=== PATIENT | male | born 1945 | race Caucasian/White ===

== ENCOUNTER → 2021-10-13 | Outpatient (CLI) | payer MEDICARE | END | disposition home or self-care (01) | LOC: LAB 14:45 | PROVIDERS: ATTEND Surgery | DX: Z01.812 Encounter for preprocedural laboratory examination (principal); Z20.822 Contact with and (suspected) exposure to COVID-19 | CPT/HCPCS: U0003; C9803 ==

== ENCOUNTER 2021-10-17 06:57 | Day surgery (SDC) | payer MEDICARE, BC ==
[2021-10-17] MEDS ORDERED: LIDOCAINE 1% INJ 50 ML MDV IJ ONE ×2 (07:58)
[2021-10-17] MEDS ORDERED: BUPIVACAINE MPF W/EPI 0.25% 30 ML VIAL ONE (07:59)
--- NOTE | 2021-10-17 09:00 | NUR ---
RN ADMITTING NOTES PATIENT ARRIVED TO UNIT, AMBULATORY, STEADY GAIT @0715. A/Ox4, ABLE TO MAKE NEEDS KNOWN. ORIENTED TO UNIT, ROOM, AND STAFF. PATIENT ASKED TO CHANGE INTO GOWN, PERSONAL BELONGINGS AND CLOTHES STORED IN BEDSIDE DRESSER. VITAL SIGNS TAKEN AND STABLE, ON ROOM AIR NO S/S OF RESPIRATORY DISTRESS. NO C/O OF CHEST PAIN OR CARDIAC DISTRESS. NO COMPLAINT OF PAIN OR DISCOMFORT. BS: 100, NO S/S OF HYPO/HYPERGLYCEMIA. FULL BODY ASSESSMENT COMPLETED: CARDIAC HEART SOUNDS WITHIN NORMAL LIMITS, RESPIRATORY LUNG SOUNDS WITHIN NORMAL LIMITS, GI/ STOMACH SOFT AND NON-TENDER, NO DISTENTION NOTED, SKIN IS INTACT, NO SKIN TEARS OR DISCOLORATION NOTED. IV SITE STARTED ON L AC #18 AND R AC #20, BOTH INTACT AND PATENT, DRESSINGS SECURED. RN EXPLAINED CONSENT FORMS TO PATIENT, PATIENT VERBALIZED UNDERSTANDING AND SIGNED CONSENT FORMS. PATIENT WAS PICKED UP AND BY OR STAFF x3 AND LEFT UNIT @0830.
[2021-10-17] MEDS ORDERED: HYDROMORPHONE INJ 2 MG/ML DISP.SYRIN ONE (09:05)
[2021-10-17] MEDS ORDERED: ANESTHESIA TRAY IN PYXIS 1 EA TRAY MC ONE (09:09)
[2021-10-17] MEDS ORDERED: KETOROLAC TROMETHAMINE INJ 30 MG/ML VIAL IV PRN (10:00)
[2021-10-17] MEDS ORDERED: ONDANSETRON HCL/PF 4 MG/2 ML VIAL IVP PRN (10:00)
[2021-10-17] MEDS ORDERED: HYDROMORPHONE INJ 2 MG/ML DISP.SYRIN IV PRN ×2 (10:00)
--- NOTE | 2021-10-17 12:30 | NUR ---
RN NOTES PATIENT RETURNED TO UNIT @1210, ON ROOM AIR, NO S/S OF RESPIRATORY DISTRESS, ACCOMPANIED BY 3 OR STAFF. PATIENT HAS L LOWER ABDOMINAL SURGERY SITE, DRESSING INTACT, NO S/S OF PAIN OR DISCOMFORT. PATIENT VS STABLE 144/51, HR 64, 96% ON ROOM AIR, TEMP 98.2, RR 18, BS: 131. PATIENT VOIDED @1222. WILL CONTINUE TO MONITOR V/S AND TOLERANCE TO FOOD FOR 3-4 HOURS BEFORE DISCHARGING.
--- NOTE | 2021-10-17 15:44 | NUR ---
SPECIAL AGENT SECRET SERVICE NOTES PATIENT CAME IN FOR DAY SURGERY, OPEN LEFT INGUINAL HERNIA WITH MESH. PATIENT D/C HOME WITH , ALL DISCHARGE INSTRUCTIONS AND HEALTH TEACHINGS EXPLAINED, PATIENT VERBALIZED UNDERSTANDING. PATIENT HAS LEFT LOWER ABDOMINAL SURGERY SITE, DRESSING INTACT, NO S/S OF DRAINAGE NOTED. PATIENT IS ABLE TO AMBULATE WITH STEADY GAIT AND VITAL SIGNS ARE STABLE. PATIENT VOIDED AFTER RETURNING TO UNIT FROM PACU @1222, AND ATE CLEAR LIQUID LUNCH, TOLERATED WELL. PATIENT WILL ADVANCE TO SOFT DIET AND THEN REGULAR DIET AFTER DISCHARGE TOLERATED. PATIENT VERBALIZED THAT PRESCRIPTIONS ARE ALREADY WITH PHARMACY. IV ACCESS REMOVED PRESSURE DRESSING APPLIED. ID BAND REMOVED. PATIENT LEFT UNIT @[id number] ACCOMPANIED BY LAYLA BLANCO. CHARGE NURSE AND MD AWARE OF DISCHARGE.
== END 2021-10-17 17:00 | disposition home or self-care (01) ==
LOC: DS 06:57 → UNDOADMIN 06:59 → MED 06:59 → UNDODISIN 15:40 → DS 17:00
PROVIDERS: ATTEND Surgery
DX: K40.90 Unilateral inguinal hernia, without obstruction or gangrene, not specified as recurrent (principal); Z20.822 Contact with and (suspected) exposure to COVID-19; K40.91 Unilateral inguinal hernia, without obstruction or gangrene, recurrent; E11.9 Type 2 diabetes mellitus without complications; Z88.5 Allergy status to narcotic agent; Z91.040 Latex allergy status; Z98.890 Other specified postprocedural states; Z79.899 Other long term (current) drug therapy
CPT/HCPCS: 49520; 88304; 82962 ×2; J0690; J1100; J2704; J1170; J3490 ×4; J1885; J2405; C1781; J7030; G0378

== ENCOUNTER 2025-01-28 15:32 | Inpatient (IN) | payer MEDICARE, BC ==
[~2025-01-28] VITALS: Ht 167.6 cm; Wt 71.4 kg
[2025-01-28 19:15] LABS: PLATELET COUNT (AUTO) 190 K/uL (150-450); RED BLOOD CELL COUNT(AUTO) 4.70 MIL/uL (4.5-6.0); RED CELL DISTRIBUTION WIDTH 17.6 % (11.5-15.0); WHITE BLOOD COUNT (AUTO) 8.2 K/uL (4.3-11.0)
[2025-01-28 19:30] LABS: INR 1.07 (0.91-1.10)
[2025-01-28] MEDS ORDERED: ONDANSETRON HCL/PF 4 MG/2 ML VIAL IVP PRN (19:30)
[2025-01-28] MEDS ORDERED: MAG HYDROX/AL HYDROX/SIMETH 30 ML UDC PO PRN (19:30)
[2025-01-28] MEDS ORDERED: ACETAMINOPHEN 325 MG TABLET PO PRN (19:30)
[2025-01-28] MEDS ORDERED: Z GUARD REMEDY 4 OZ OINT TP PRN (19:30)
[2025-01-28 19:31] LABS: CALCIUM, SERUM 8.4 mg/dL (8.5-10.1); CREATININE 1.0 mg/dL (0.6-1.3); SODIUM SERUM 138 mmol/L (136-145); UREA NITROGEN, BLOOD 23 mg/dL (7-18)
[2025-01-28 21:29] VITALS: BP 144/57; TEMP 97.7; O2SAT 98
[2025-01-29 08:00] VITALS: BP 132/59; TEMP 97.5; O2SAT 98
[2025-01-29 08:13] LABS: PLATELET COUNT (AUTO) 155 K/uL (150-450); RED BLOOD CELL COUNT(AUTO) 4.48 MIL/uL (4.5-6.0); RED CELL DISTRIBUTION WIDTH 17.6 % (11.5-15.0); WHITE BLOOD COUNT (AUTO) 5.5 K/uL (4.3-11.0)
[2025-01-29] MEDS: ENOXAPARIN SODIUM 40 MG/0.4 ML DISP.SYRIN SQ SCH (09:00)
[2025-01-29 09:25] LABS: CALCIUM, SERUM 8.4 mg/dL (8.5-10.1); CREATININE 0.7 mg/dL (0.6-1.3); PHOSPHORUS 3.5 mg/dL (2.5-4.9); SODIUM SERUM 142.0 mmol/L (136-145); UREA NITROGEN, BLOOD 23.0 mg/dL (7-18)
[2025-01-29] MEDS: PANTOPRAZOLE 40 MG TABLET.DR PO SCH (09:30)
[2025-01-29 09:38] LABS: LDL 42.0 mg/dL (0-99)
[2025-01-29] MEDS ORDERED: MEMA10TA56 PO (18:45)
[2025-01-29] MEDS ORDERED: DAPA1TAB5 PO (18:45)
[2025-01-29] MEDS ORDERED: TAMS-12 PO (18:45)
[2025-01-29] MEDS ORDERED: FAMO20TA8 PO (18:45)
[2025-01-29] MEDS ORDERED: MONT10TA22 PO (18:45)
[2025-01-29] MEDS ORDERED: GEMTESA PO (18:45)
[2025-01-29] MEDS ORDERED: CITA20TA16 PO (18:45)
[2025-01-29] MEDS ORDERED: DONE10TA44 PO (18:45)
[2025-01-29] MEDS ORDERED: TADA5TAB13 PO (18:45)
[2025-01-29] MEDS ORDERED: OMEG1CAP40 PO (18:45)
[2025-01-29] MEDS ORDERED: ROSU20TA32 PO (18:45)
[2025-01-29] MEDS ORDERED: CLOP75TA15 PO (18:45)
[2025-01-29 20:00] VITALS: BP_SYST 103; BP_SYST 107; BP_DIAS 53; TEMP 98.1; O2SAT 97
[2025-01-29] MEDS: IV NS 0.9% 1,000 ML IV PRN (22:40)
[2025-01-30 07:00] VITALS: BP 130/55; TEMP 97.3; O2SAT 94
[2025-01-30 07:56] LABS: PLATELET COUNT (AUTO) 151 K/uL (150-450); RED BLOOD CELL COUNT(AUTO) 4.46 MIL/uL (4.5-6.0); RED CELL DISTRIBUTION WIDTH 17.9 % (11.5-15.0); WHITE BLOOD COUNT (AUTO) 5.5 K/uL (4.3-11.0)
[2025-01-30 08:34] LABS: ASPARTATE AMINOTRANSFERASE 13.0 U/L (15-37); CALCIUM, SERUM 8.1 mg/dL (8.5-10.1); CREATININE 0.7 mg/dL (0.6-1.3); PHOSPHORUS 3.0 mg/dL (2.5-4.9); SODIUM SERUM 139.0 mmol/L (136-145); TOTAL PROTEIN, SERUM 6.3 g/dL (6.4-8.2); UREA NITROGEN, BLOOD 16.0 mg/dL (7-18)
[2025-01-30] MEDS ORDERED: ANESTHESIA TRAY IN PYXIS 1 EA TRAY MC ONE ×2 (10:40→15:41)
[2025-01-30] MEDS ORDERED: TRANEXAMIC ACID 1,000 MG/10 ML VIAL ONE (10:41)
[2025-01-30] MEDS ORDERED: BUPIVACAINE 0.5 % PF 150 MG/30 ML VIAL ONE (10:41)
[2025-01-30] MEDS ORDERED: ROPIVACAINE HCL 0.5% 5 MG/ML 30ML VIAL ONE (11:37)
[2025-01-30] MEDS ORDERED: SUCCINYLCHOLINE CHLORIDE 20 MG/ML VIAL ONE (11:37)
[2025-01-30] MEDS ORDERED: ROCURONIUM BROMIDE 50 MG/5 ML ONE (11:37)
[2025-01-30] MEDS ORDERED: MORPHINE SULFATE INJ 4 MG/ML DISP.SYRIN ONE (11:38)
[2025-01-30] MEDS ORDERED: FENTANYL PF 250MCG/5ML AMPUL ONE (11:39)
[2025-01-30] MEDS ORDERED: MEPERIDINE HCL/PF 50 MG/ML DISP.SYRIN IV PRN (13:00)
[2025-01-30] MEDS ORDERED: BLOOD SUGAR DIAGNOSTIC 1 EACH STRIP VI ONE (13:00)
[2025-01-30] MEDS ORDERED: ONDANSETRON HCL/PF 4 MG/2 ML VIAL IVP PRN (13:00)
[2025-01-30] MEDS ORDERED: FENTANYL PF 100MCG/2ML AMPUL IV PRN (13:00)
[2025-01-30] MEDS ORDERED: METOCLOPRAMIDE HCL 10 MG/2 ML VIAL IV PRN (13:00)
[2025-01-30] MEDS ORDERED: MORPHINE SULFATE INJ 10 MG/ML DISP.SYRIN IV PRN (13:00)
[2025-01-30 15:00] VITALS: BP 146/62; TEMP 97.5; O2SAT 92
[2025-01-30] MEDS: CEFAZOLIN 2 GM in IV D5W 100 ML IV SCH (19:56)
[2025-01-30 20:00] VITALS: BP 130/55; TEMP 98.6; O2SAT 94
[2025-01-30] MEDS: MAGNESIUM HYDROXIDE 30 ML UDC PO PRN (21:10)
[2025-01-31] MEDS: HYDROCODONE/APAP 5/325MG TABLET PO PRN (06:45)
[2025-01-31 07:30] LABS: PLATELET COUNT (AUTO) 167 K/uL (150-450); RED BLOOD CELL COUNT(AUTO) 4.45 MIL/uL (4.5-6.0); RED CELL DISTRIBUTION WIDTH 18.1 % (11.5-15.0); WHITE BLOOD COUNT (AUTO) 6.3 K/uL (4.3-11.0)
[2025-01-31 08:00] VITALS: BP 131/57; TEMP 98.1; O2SAT 94
[2025-01-31 08:37] LABS: ASPARTATE AMINOTRANSFERASE 18.0 U/L (15-37); CALCIUM, SERUM 8.3 mg/dL (8.5-10.1); CREATININE 0.9 mg/dL (0.6-1.3); PHOSPHORUS 3.1 mg/dL (2.5-4.9); SODIUM SERUM 140.0 mmol/L (136-145); TOTAL PROTEIN, SERUM 6.3 g/dL (6.4-8.2); UREA NITROGEN, BLOOD 14.0 mg/dL (7-18)
[2025-01-31 16:00] VITALS: BP 134/51; TEMP 97.9; O2SAT 98
[2025-01-31 20:51] VITALS: BP 122/54; TEMP 98.2; O2SAT 96
[2025-01-31] MEDS: TEMAZEPAM 15 MG CAPSULE PO PRN (22:07)
[2025-02-01 08:00] VITALS: BP 114/60; TEMP 98.2; O2SAT 98
[2025-02-01 20:00] VITALS: BP 106/48; TEMP 99; O2SAT 95
[2025-02-02 08:00] VITALS: BP 111/53; TEMP 98.2; O2SAT 94
[2025-02-02 15:39] VITALS: BP 125/53; TEMP 98.1; O2SAT 96
== END 2025-02-02 16:30 | DRG 482 ==
LOC: ER 16:03 → MED 20:57
PROVIDERS: ADMIT Nurse Practitioner Acute Care
PROC: 0QS606Z Reposition Right Upper Femur with Intramedullary Internal Fixation Device, Open Approach (ICD-10-PCS; principal; 2025-01-30 12:00)
DX: S72.111A Displaced fracture of greater trochanter of right femur, initial encounter for closed fracture (principal); I10 Essential (primary) hypertension; M19.90 Unspecified osteoarthritis, unspecified site; Y92.002 Bathroom of unspecified non-institutional (private) residence as the place of occurrence of the external cause; W18.30XA Fall on same level, unspecified, initial encounter; Z87.891 Personal history of nicotine dependence; Z88.5 Allergy status to narcotic agent; Z96.651 Presence of right artificial knee joint; Z91.040 Latex allergy status; Z98.890 Other specified postprocedural states; R79.89 Other specified abnormal findings of blood chemistry; R73.03 Prediabetes
CPT/HCPCS: 36415; 71045-TC; 73502; 73700-TC; 73721-TC; 80048-TC; 80053-TC; 80061-TC; 83735-TC; 84100-TC; 84443-TC; 85025-TC; 85730-TC; 86850-TC; 93307-TC; 97110-TC; 97116-TC; 97530-TC; 97535-TC; A4217; A4223; A6209; A6223; A6253; A6254; C1713; G0378; J0330; J0690; J1100; J1650; J2270; J2405; J2704; J2795; J3010; J3490; J7030; J7040; J7060; Q0163